=== PATIENT | male | born 1955 | race Caucasian/White ===

== ENCOUNTER 2022-10-12 18:48 | Inpatient (IN) | payer OTHER ==
[2022-10-12 19:34] VITALS: BMI 26.1
[2022-10-12] MEDS ORDERED: IBUPROFEN 600 MG TABLET (FP) PO PRN (21:03)
[2022-10-12] MEDS ORDERED: POLYETHYLENE GLYCOL (HEALTHYLAX) 3350 17 GM PACKET PO PRN (21:03)
[2022-10-12] MEDS ORDERED: NALOXONE HCL (KLOXXADO) 8 MG SPRAY NS PRN (21:03)
[2022-10-12] MEDS ORDERED: MAGNESIUM HYDROX 2400MG/30ML ORAL SUSPENSION 30 ML CUP PO PRN (21:03)
[2022-10-12] MEDS ORDERED: ACETAMINOPHEN 325 MG TABLET (FP) PO PRN (21:03)
[2022-10-12] MEDS ORDERED: MAG HYDROX/AL HYDROX/SIMETH 30 ML UNIT-DOSE CUP PO PRN (21:03)
[2022-10-12] MEDS ORDERED: BISMUTH SUBSALICYLATE 524 MG/30 ML PO PRN (21:03)
[2022-10-12] MEDS ORDERED: DICYCLOMINE HCL 10 MG CAPSULE PO PRN (21:03)
[2022-10-12] MEDS ORDERED: ONDANSETRON *ODT* 4 MG TABLET SL PRN (21:03)
[2022-10-12] MEDS ORDERED: BENZOCAINE/MENTHOL (CHLORASEPTIC ) LOZENGE MM PRN (21:03)
[2022-10-12] MEDS ORDERED: LOPERAMIDE HCL 2 MG CAPSULE PO PRN (21:03)
[2022-10-12] MEDS ORDERED: IBUPROFEN 400 MG TABLET (FP) PO PRN (21:03)
[2022-10-12] MEDS ORDERED: cloNIDine HCL 0.1 MG TABLET PO ONE (21:10)
[2022-10-12] MEDS ORDERED: ASPIRIN 81 MG CHEWABLE TABLETS PO ONE (21:10)
[2022-10-12] MEDS ORDERED: ASPIRIN 81 MG CHEWABLE TABLETS ONE (22:23)
[2022-10-12] MEDS ORDERED: cloNIDine HCL 0.1 MG TABLET ONE (22:23)
[2022-10-12] MEDS: THIAMINE HCL 100 MG TABLET (FP) PO SCH (23:23)
[2022-10-12] MEDS: MELATONIN 5 MG TABLETS PO SCH (23:23)
[2022-10-13] MEDS ORDERED: methaDONE HCL 10 MG TABLET (FOR DETOX USE ONLY) PO ONE (08:05)
[2022-10-13 09:42] LABS: HEMATOCRIT 42.4 % (35.4-49); HEMOGLOBIN 13.5 GM/dL (11.7-16.9); MCH 26.4 pg (25.7-33.7); MCHC 31.9 g/dl (32.0-35.9); MEAN PLT VOLUME 8.8 fl (7.5-11.1); PLATELET COUNT 283 10^3/uL (134-434); RBC 5.11 M/mm3 (4.00-5.60); RDW 14.2 % (11.9-15.9); WHITE BLOOD COUNT 5.6 K/mm3 (4.0-10.0)
[2022-10-13 09:47] LABS: CALCIUM 9.5 mg/dL (8.5-10.1)
[2022-10-13 09:48] LABS: ALBUMIN 3.3 g/dl (3.4-5.0); BLOOD UREA NITROGEN 13.2 mg/dL (7-18)
[2022-10-13 09:51] LABS: CREATININE 0.9 mg/dL (0.55-1.3)
[2022-10-13 09:52] LABS: BILIRUBIN,TOTAL 0.5 mg/dL (0.2-1); TOT PROT 6.6 g/dl (6.4-8.2)
[2022-10-13] MEDS: PRENATAL VITAMINS W/ FOLIC ACID TABLET (FP) PO SCH (10:15)
[2022-10-13] MEDS: cloNIDine HCL 0.1 MG TABLET PO PRN (10:16)
[2022-10-13] MEDS: METHOCARBAMOL 500 MG TABLET PO PRN ×2 (10:16→22:20)
[2022-10-13] MEDS: THIAMINE HCL 100 MG TABLET (FP) PO SCH (22:20)
[2022-10-13] MEDS: MELATONIN 5 MG TABLETS PO SCH (22:20)
[2022-10-14] MEDS: cloNIDine HCL 0.1 MG TABLET PO PRN ×3 (06:31→22:14)
[2022-10-14] MEDS: METHOCARBAMOL 500 MG TABLET PO PRN (10:25)
[2022-10-14] MEDS: PRENATAL VITAMINS W/ FOLIC ACID TABLET (FP) PO SCH (10:25)
[2022-10-14] MEDS ORDERED: SODIUM POLYSTYRENE SULFONATE 15 GM/60 ML BOTTLE PO ONE (14:00)
[2022-10-14] MEDS: diazePAM 5 MG TABLET PO PRN ×2 (17:29→22:14)
[2022-10-14] MEDS: ACETAMINOPHEN 325 MG TABLET (FP) PO PRN (20:34)
[2022-10-14] MEDS: MELATONIN 5 MG TABLETS PO SCH (22:13)
[2022-10-14] MEDS: THIAMINE HCL 100 MG TABLET (FP) PO SCH (22:13)
[2022-10-15] MEDS: cloNIDine HCL 0.1 MG TABLET PO PRN (05:50)
[2022-10-15] MEDS ORDERED: methaDONE HCL 10 MG TABLET (FOR DETOX USE ONLY) PO ONE (10:00)
[2022-10-15] MEDS: diazePAM 5 MG TABLET PO PRN (10:42)
[2022-10-15] MEDS: METHOCARBAMOL 500 MG TABLET PO PRN ×2 (10:43→23:03)
[2022-10-15] MEDS: PRENATAL VITAMINS W/ FOLIC ACID TABLET (FP) PO SCH (10:43)
[2022-10-15] MEDS: THIAMINE HCL 100 MG TABLET (FP) PO SCH (23:00)
[2022-10-15] MEDS: MELATONIN 5 MG TABLETS PO SCH (23:00)
[2022-10-16] MEDS: PRENATAL VITAMINS W/ FOLIC ACID TABLET (FP) PO SCH (10:41)
[2022-10-16] MEDS: diazePAM 5 MG TABLET PO PRN (12:32)
[2022-10-16] MEDS ORDERED: SODIUM POLYSTYRENE SULFONATE 15 GM/60 ML BOTTLE PO ONE (13:30)
[2022-10-16] MEDS: THIAMINE HCL 100 MG TABLET (FP) PO SCH (21:44)
[2022-10-16] MEDS: MELATONIN 5 MG TABLETS PO SCH (21:44)
[2022-10-16] MEDS: cloNIDine HCL 0.1 MG TABLET PO PRN (21:44)
[2022-10-16] MEDS: METHOCARBAMOL 500 MG TABLET PO PRN (21:45)
[2022-10-17] MEDS: PRENATAL VITAMINS W/ FOLIC ACID TABLET (FP) PO SCH (09:51)
[2022-10-17] MEDS: cloNIDine HCL 0.1 MG TABLET PO PRN ×2 (09:51→22:24)
[2022-10-17] MEDS ORDERED: methaDONE HCL 10 MG TABLET (FOR DETOX USE ONLY) PO ONE (10:00)
[2022-10-17] MEDS: ACETAMINOPHEN 325 MG TABLET (FP) PO PRN (20:05)
[2022-10-17] MEDS: THIAMINE HCL 100 MG TABLET (FP) PO SCH (22:24)
[2022-10-17] MEDS: METHOCARBAMOL 500 MG TABLET PO PRN (22:24)
[2022-10-17] MEDS: MELATONIN 5 MG TABLETS PO SCH (22:24)
[2022-10-18] MEDS: METHOCARBAMOL 500 MG TABLET PO PRN (05:31)
[2022-10-18] MEDS: PRENATAL VITAMINS W/ FOLIC ACID TABLET (FP) PO SCH (10:28)
[2022-10-18] MEDS: MELATONIN 5 MG TABLETS PO SCH (22:46)
[2022-10-18] MEDS: THIAMINE HCL 100 MG TABLET (FP) PO SCH (22:46)
[2022-10-19 09:47] VITALS: BP 151/75; PULSE 76; RESP 18; TEMP 98
== END 2022-10-19 09:48 | disposition home or self-care (01) | DRG 897 ==
LOC: YASAS 18:48 → Y6N 21:23
PROVIDERS: ADMIT Allergy & Immunology; ATTEND Surgery
PROC: HZ2ZZZZ Detoxification Services for Substance Abuse Treatment (ICD-10-PCS; principal; 2022-10-12)
DX: F11.23 Opioid dependence with withdrawal (principal); I10 Essential (primary) hypertension; E87.5 Hyperkalemia; E86.0 Dehydration; Z87.891 Personal history of nicotine dependence
CPT/HCPCS: 36415; 80053; 84132; 85027; 86780; 93005; 93010; C9803-CS; U0003; U0005